=== PATIENT | female | born 1965 | race Caucasian/White ===

== ENCOUNTER → 2023-06-12 06:32 | Day surgery (SDC) | payer BC, SELFPAY | LOC: GI 06:32 | PROVIDERS: ATTENDING PHYSICIAN Internal Medicine; FAMILY PHYSICIAN Student in an Organized Health Care Education/Training Program | DX: R10.13 Epigastric pain (principal); K31.89 Other diseases of stomach and duodenum; K22.70 Barrett's esophagus without dysplasia; K29.70 Gastritis, unspecified, without bleeding | CPT/HCPCS: 43239; 88305 ==

== ENCOUNTER → 2023-07-14 14:01 | Outpatient (REF) | payer BC, SELFPAY | LOC: WDC 14:01 | PROVIDERS: ATTENDING PHYSICIAN Obstetrics & Gynecology; FAMILY PHYSICIAN Student in an Organized Health Care Education/Training Program | DX: R92.8 Other abnormal and inconclusive findings on diagnostic imaging of breast (principal) | CPT/HCPCS: 76642; 77061; 77065 ==

== ENCOUNTER → 2023-07-29 06:12 | Day surgery (SDC) | payer BC, SELFPAY | LOC: GI 06:12 | PROVIDERS: ATTENDING PHYSICIAN Internal Medicine; FAMILY PHYSICIAN Student in an Organized Health Care Education/Training Program | DX: Z12.11 Encounter for screening for malignant neoplasm of colon (principal); Z86.010 Personal history of colon polyps | CPT/HCPCS: G0105 ==

== ENCOUNTER → 2024-04-01 16:05 | Outpatient (REF) | payer BC, SELFPAY | LOC: RAD 16:05 | PROVIDERS: ATTENDING PHYSICIAN Student in an Organized Health Care Education/Training Program; FAMILY PHYSICIAN Student in an Organized Health Care Education/Training Program | DX: K40.90 Unilateral inguinal hernia, without obstruction or gangrene, not specified as recurrent (principal) | CPT/HCPCS: 74178; Q9967 ==

== ENCOUNTER 2024-05-17 06:12 | Day surgery (SDC) | payer BC, SELFPAY ==
[2024-05-03 13:12] VITALS: BMI 23.7
[2024-05-17] VITALS (8 sets, daily range): BP systolic 111–139; BP diastolic 72–90; BMI 23.7
[2024-05-17] MEDS: NORMOSOL-R/PLASMALYTE-A 1000 IV (06:36)
[2024-05-17] MEDS: TYLENOL 1000 MG PO (06:36)
--- NOTE | 2024-05-17 08:54 | W.IMMPOSTOP ---
Surgical Immed Post Op Note
-
Primary Surgeon: Maranda
Assisting: Veronica HALE
Pre-op Diagnosis: Bilateral inguinal hernias
Post-op Diagnosis: Same
Procedure Performed: Robot assisted laparoscopic repair of bilateral inguinal hernias
Anesthesia Type: GETA
Specimen / Cultures: None
Estimated Blood Loss: 5cc
Complications: None immediate
Operative Findings: Right femoral hernia with fatty contents, small cord lipoma, left indirect defect with moderate cord lipoma; B/L XL MID 3D Max
--- NOTE | 2024-05-17 08:57 | OR.RPT ---
Addendum entered and electronically signed by Shantanu Low MD 05/17/24 11:15:
Addendum: Indications: imaging indicated a left inguinal hernia as well. She asked that we fix both sides today.
Original Note:
Operative Report
Operative Report
Primary Surgeon: Maranda
Assisting: Veronica HALE
Pre-op Diagnosis: Bilateral inguinal hernias
Post-op Diagnosis: Same
Procedure Performed: Robot assisted laparoscopic repair of bilateral inguinal hernias
Anesthesia Type: GETA
Specimen / Cultures: None
Estimated Blood Loss: 5cc
Complications: None immediate
Operative Findings: Right femoral hernia with fatty contents, small cord lipoma, left indirect defect with moderate cord lipoma; B/L XL MID 3D Max
Date of surgery: 05/17/24
Indications:� This 58F developed a symptomatic right inguinal hernia. Robot assisted laparoscopic repair of bilateral inguinal hernias was planned.
Description of procedure:� The patient was taken to the operating room and positioned into supine position. The patient�s abdomen was prepped and draped in standard sterile fashion. A time-out was completed verifying correct patient, procedure,
site, positioning, and implants and special equipment prior to beginning this procedure.
The groin hernia was manually reduced. A stab incision was made in the left upper quadrant, a Veress needle was inserted and proper position was confirmed by aspiration and saline drop test. Following this, pneumoperitoneum was created with
insufflation of carbon dioxide to 12 mmHg. Then a 8mm robotic trocar was inserted above and to the left of the umbilicus. A laparoscope was inserted and the area of initial trocar entry and Veress needle placement were both inspected and no injuries
were found. Two 8mm trocars were then placed lateral to the rectus sheath under direct visualization.
Both inguinal regions were inspected and the median umbilical ligament, medial umbilical ligament, and lateral umbilical fold were identified. Attention was turned to the right groin. The peritoneum was incised transversely above the defect and a
flap was developed in the caudad direction. Hayden�s ligament was identified ultimately dissected to its junction with the iliac vein and the space of Retzius was developed bluntly.� The dissection was continued inferiorly to the iliopubic tract,
with care taken to avoid injury to the femoral branch of the genitofemoral nerve and the lateral femoral cutaneous nerve. The round ligament was parietalized and sacrificed low near the interface with the peritoneum.
The direct space was inspected and no hernia defect was identified. The femoral space was inspected a defect was identified, and fatty contents were reduced. The indirect space was inspected and a shallow hernia was identified and reduced by gentle
traction. The canal was inspected and a small cord lipoma was identified and reduced.
Attention was turned to the left groin and the above process was repeated. An indirect hernia was identified and reduced by gentle traction along with a moderate cord lipoma.
Extra large right and left MID 3D max mesh was passed through a trocar. The mesh was placed into the preperitoneal space and moved into position to lay flat and completely cover the direct, indirect, and femoral spaces with overlap at the midline.
The mesh was secured into place using 2-0 vicryl suture to Hayden�s ligament medially and laterally. Care was taken to avoid the inferolateral triangles containing the iliac vessels and genital nerves. The peritoneal flap was closed over the mesh
and secured with 2-0 monocryl stratafix suture in similar positions of safety. A 14g angiocath was used to decompress the preperitoneal space revealing good seal and all mesh in good position without folding or curling.
After ensuring adequate hemostasis, the trocars were removed and the pneumoperitoneum allowed to escape. The trocar incisions were closed at the skin level using 4-0 monocryl and topical skin adhesive. All counts were correct and the patient
tolerated the procedure well and was taken to the postanesthesia care unit in stable condition.
The assistance of Veronica HALE was required due to the complexity of the procedure. During the procedure she assisted with retraction, resection, and closure of the wound.
== END 2024-05-17 10:12 | disposition home or self-care (01) ==
LOC: SDS 06:12
PROVIDERS: ATTENDING PHYSICIAN Surgery; FAMILY PHYSICIAN Student in an Organized Health Care Education/Training Program
PROC: 0YUA4JZ Supplement Bilateral Inguinal Region with Synthetic Substitute, Percutaneous Endoscopic Approach (ICD-10-PCS; 2024-05-17)
PROC: 8E0W4CZ Robotic Assisted Procedure of Trunk Region, Percutaneous Endoscopic Approach (ICD-10-PCS; 2024-05-17)
DX: K40.20 Bilateral inguinal hernia, without obstruction or gangrene, not specified as recurrent (principal); D17.79 Benign lipomatous neoplasm of other sites
CPT/HCPCS: 49650; 36415; 93005; C1781

== ENCOUNTER → 2024-05-26 18:37 | Outpatient (REF) | payer BC, SELFPAY | LOC: WDC 18:37 | PROVIDERS: ATTENDING PHYSICIAN Student in an Organized Health Care Education/Training Program; FAMILY PHYSICIAN Student in an Organized Health Care Education/Training Program | DX: Z12.31 Encounter for screening mammogram for malignant neoplasm of breast (principal) | CPT/HCPCS: 77063; 77067 ==